=== PATIENT | male | born 1955 | race Caucasian/White ===

== ENCOUNTER 2016-05-15 06:17 | Day surgery (SDC) | payer OTHER ==
[~2016-05-15] VITALS: Ht 167.6 cm; Wt 99.0 kg
[2016-05-15] MEDS ORDERED: GLIMEPIRIDE (07:12)
[2016-05-15] MEDS ORDERED: SIMVASTATIN (07:12)
[2016-05-15] MEDS ORDERED: METFORMIN (07:12)
[2016-05-15] MEDS ORDERED: lisinopril (07:12)
[2016-05-15] MEDS ORDERED: Metoprolol (07:12)
[2016-05-15] MEDS ORDERED: JANUVIA (07:12)
[2016-05-15] MEDS ORDERED: ASPIRIN (07:12)
[2016-05-15 07:13] VITALS: BMI 35.2
[2016-05-15] MEDS ORDERED: PROPOFOL 40 ML ONE (07:21)
[2016-05-15 07:28] VITALS: BP 154/87; PULSE 69; RESP 14
[2016-05-15 07:37] VITALS: Ht 167.6 cm; Wt 99.0 kg
[2016-05-15 07:42] VITALS: BP 154/87; PULSE 69; RESP 16
[2016-05-15 08:52] VITALS: BP 162/92; PULSE 60; RESP 10
--- NOTE | 2016-05-15 13:01 | GILP ---
DATE OF PROCEDURE: 05/15/2016 NAME OF PROCEDURE: Colonoscopy. SURGEON: Juli Lyons MD PREOPERATIVE DIAGNOSIS: Screening colonoscopy. POSTOPERATIVE DIAGNOSES 1. Colonoscopy all the way to the cecum. 2. Diverticulosis of the colon. 3. Internal hemorrhoids. 4. No colon neoplasm was identified. INDICATION FOR THE PROCEDURE: Mr. Avinash Eagle is a 61-year-old male patient who was scheduled for screening colonoscopy. The procedure and possible complications were well explained to the patient, he understood and conse nted to the procedure. DESCRIPTION OF PROCEDURE: Under the influence of anesthesia, the colonoscope was carefully introduc ed in the rectum and under direct vision, it was advanced all the way to the cecum. FINDINGS: The patient had diverticulosis of the colon. He also had internal hemorrhoids. No colon neoplasm was identified. The patient tolerated the procedure very well and there was no complication from the procedure. At the end of the procedure, he was awake with stable vital signs and he was discharged home to the car e of his family. IMPRESSION: 1. Colonoscopy all the way to the cecum. 2. Diverticulosis of the colon. 3. Internal hemorrhoids. 4. No colon neoplasm was identified. PLAN: Next screening colonoscopy in 10 years. Dictated By: JULI LUZ/FLORESITA Conf#: [id number] DID#: [id number]
== END 2016-05-15 08:48 | disposition home or self-care (01) ==
LOC: GIL 06:17
PROVIDERS: ATTEND Internal Medicine Gastroenterology
DX: Z12.11 Encounter for screening for malignant neoplasm of colon (principal); K57.30 Diverticulosis of large intestine without perforation or abscess without bleeding; K64.8 Other hemorrhoids; I10 Essential (primary) hypertension; E11.9 Type 2 diabetes mellitus without complications
CPT/HCPCS: 82962